=== PATIENT | female | born 2000 | race Caucasian/White ===

== ENCOUNTER 2025-01-09 08:08 | Emergency (ER) | payer OTHER, MEDICAID ==
[~2025-01-09] VITALS: Ht 167.6 cm; Wt 60.0 kg
[2025-01-09 08:24] VITALS: TEMP 37.2; O2SAT 100
[2025-01-09] MEDS ORDERED: METH-653 MT (08:49)
[2025-01-09] MEDS ORDERED: LIDO-53 TP (08:49)
[2025-01-09] MEDS: KETOROLAC 30MG/ML VIAL IM ONE (09:18)
[2025-01-09] MEDS: ACETAMINOPHEN 500MG TABLET PO ONE (09:18)
[2025-01-09 09:20] VITALS: BP 123/71; PULSE 79; RESP 16; O2SAT 96
== END 2025-01-09 09:21 | disposition home or self-care (01) ==
LOC: ER 08:08
DX: M25.511 Pain in right shoulder (principal); M25.512 Pain in left shoulder; M54.2 Cervicalgia; R51.9 Headache, unspecified; Z79.899 Other long term (current) drug therapy; V43.52XA Car driver injured in collision with other type car in traffic accident, initial encounter; Y93.89 Activity, other specified; Y92.410 Unspecified street and highway as the place of occurrence of the external cause; Y99.8 Other external cause status
CPT/HCPCS: 96372; 99283; J1885; Z7610 ×3